=== PATIENT | male | born 1940 | race Caucasian/White ===

== ENCOUNTER 2017-07-20 10:46 | Observation (INO) | payer SELFPAY ==
[2017-07-20 11:30] LABS: ABS Basophils 0 10^3/ul (0-0.2); ABS Eosinophils 0.1 10^3/ul (0-0.6); ABS Lymphocytes 1.3 10^3/ul (1.0-4.8); ABS Monocytes 0.8 10^3/ul (0-0.8); ABS Neutrophils 4.8 10^3/ul (1.5-7.7); ABS Nucleated RBC 0 10^3/ul; Eosinophil % 1.4 % (0-6); Hematocrit 39 % (42-52); Hemoglobin 13.3 g/dl (14.0-18.0); Lymphocyte % 18.1 % (25-47); Mean Corpuscular HGB Conc 34 g/dl (31-36); Mean Corpuscular Hemoglobin 31 pg (27-31); Mean Corpuscular Volume 91 fL (80-94); Mean Platelet Volume 9.4 um3 (7.4-10.4); Nucleated Red Blood Cells % 0.1; Platelet Count 144 10^3/ul (150-450); Red Blood Count 4.33 10^6/ul (4.0-5.4); Red Cell Distribution Width 14 % (10.5-15)
[2017-07-20 11:36] LABS: INR 0.98 (0.77-1.02)
[2017-07-20 11:48] LABS: EGFR Non-African American 91.6 (>60)
--- NOTE | 2017-07-20 12:12 | RAD ---
HISTORY: Syncope and head trauma COMPARISONS: None TECHNIQUE: Multiple contiguous axial CT scans were obtained of the cervical spine without intravenous contrast, with coronal and sagittal multiplanar reformations. FINDINGS: BRAIN: The visualized brain is unremarkable CENTRAL CANAL: Evaluation of the central canal is limited on CT technique; however, there is no obvious canalicular mass or epidural hemorrhage. ALIGNMENT: The alignment is normal, without subluxation or dislocation. VERTEBRAL BODIES: There is diffuse osteopenia. There is multilevel anterolateral marginal osteophyte formation. There is no displaced fracture. JOINTS: There is uncovertebral and facet osteoarthritis. There is osteoarthritis of the atlantoaxial articulation. MUSCULATURE: Unremarkable INTERVERTEBRAL DISCS: There is diffuse loss of intervertebral disc height. AXIAL IMAGES: C2-C3: There is no osseous neural foraminal narrowing or central canal stenosis. C3-C4: There is moderate left neuroforaminal narrowing. There is no osseous central canal stenosis. C4-C5: There is mild bilateral neural foraminal narrowing. There is no osseous central canal stenosis. C5-C6: There is moderate bilateral neural foraminal narrowing. There is no osseous central canal stenosis. C6-C7: There is mild bilateral neural foraminal narrowing. There is no osseous central canal stenosis. C7-T1: There is no osseous neural foraminal narrowing or central canal stenosis. SOFT TISSUES: There is a 2.3 cm right thyroid nodule. The prevertebral fat stripe is preserved. Carotid calcifications are noted. OTHER: None. IMPRESSION: 1. NO ACUTE OSSEOUS INJURY TO THE CERVICAL SPINE. 2. DEGENERATIVE DISC DISEASE AND OSTEOARTHRITIS. 3. ATHEROSCLEROSIS. 4. 2.3 CM RIGHT THYROID NODULE. THE [place] [employer] INCIDENTAL THYROID FINDINGS COMMITTEE RECOMMENDS THYROID ULTRASOUND FOR INCIDENTAL NONSUSPICIOUS THYROID NODULES GREATER THAN 1.5 CM IN SIZE FOR THE PATIENT OVER THE AGE OF 35. SUMAYA Woods et al (2015) "Managing incidental thyroid nodules detected on imaging: white paper of the ACR Incidental Thyroid Findings Committee", Journal of the [employer], 12:143-150.
--- NOTE | 2017-07-20 12:13 | RAD ---
INDICATION: Head injury. COMPARISON: There are no prior studies available for comparison. TECHNIQUE: Contiguous axial sections of the brain were obtained from the skull base to the vertex without contrast. FINDINGS: The ventricles, cisterns and sulci are enlarged consistent with diffuse atrophy. There is a small focal area of increased density present in the in the midline adjacent to the frontal lobes anterior to the corpus callosum suspicious for a small area of subarachnoid hemorrhage. This measures approximate 5 mm in size. There are small areas of decreased attenuation present in the subcortical and periventricular white matter most consistent with mild chronic small vessel ischemic changes. No other focal abnormality or mass effect is seen. There is prominent focal soft tissue swelling in the scalp adjacent to the superior aspect of the left parietal bone. No fracture is seen. The visualized portion of the paranasal sinuses and mastoid air cells appear clear. IMPRESSION: 1. FINDINGS SUGGESTIVE OF A SMALL AREA OF SUBARACHNOID HEMORRHAGE ADJACENT TO THE FRONTAL LOBES DESCRIBED. 2. ATROPHY AND FINDINGS SUGGESTIVE OF CHRONIC SMALL VESSEL ISCHEMIC CHANGES.
--- NOTE | 2017-07-20 12:32 | RAD ---
INDICATION: Syncope. COMPARISON: There are no prior studies available for comparison. TECHNIQUE: AP and lateral views of the chest were obtained. FINDINGS: The patient appears to be status post coronary artery bypass surgery. The heart appears within normal limits in size. The lungs are hyperinflated and clear. No pleural effusion is seen. IMPRESSION: POSTSURGICAL CHANGES, NO EVIDENCE FOR ACUTE FINDING.
[2017-07-20] MEDS ORDERED: Tetan/Diph/Pertus SYR(Tdap)* 0.5 ML SYR(BOOSTRIX) use SYR IM ONE (13:21)
--- NOTE | 2017-07-20 13:23 | ED ---
Filiberto Lugo Angela, scribed for Rahat Cabello MD on 07/20/17 at 1052 . Head Injury - HPI Summary HPI Summary: This pt is a 77 y/o male presenting to [facility] via EMS c/o laceration on head s/p witnessed fall today. Pt reports he was walking down some stairs at [facility] with his when he slipped and fell. EMS notes he fell down 5 rough stairs and struck the back of his head on a stone. Pt states he does not remember falling and states "I didn't even know I had fallen." Per EMS bystanders held pressure on his head until EMS arrived. Pt denies neck pain, back pain, dizziness. Pt is currently on aspirin. Denies any other anticoagulants. Pt is a visitor from [place]. NKDA. - History Of Current Complaint Stated Complaint: FALL, HEAD LAC Hx Obtained From: Patient, EMS Mechanism Of Injury: Direct Blow, Fall From Height Of: - 5 stair steps Onset/Duration: Started Minutes Ago, Traumatic, Still Present Onset of Pain: Minutes Location of Head Injury: Occipital Aggravating Factor(s): Other: - nothing Alleviating Factor(s): Other: - nothing Associated Signs And Symptoms: LOC Duration Unknown, Other: - NEG: neck pain, back pain, dizziness Anticoagulant Therapy: ASA - Allergies/Home Medications Allergies/Adverse Reactions: Allergies Allergy/AdvReac Type Severity Reaction Status Date / Time No Known Allergies Allergy Verified 07/20/17 10:56 Home Medications: Home Medications Atorvastatin* [Lipitor*] 20 mg PO DAILY 07/20/17 [History Confirmed 07/20/17] Hydrochlorothiazide TAB* [Hydrodiuril TAB*] 12.5 mg PO DAILY 07/20/17 [History Confirmed 07/20/17] Metoprolol Succinate XL TAB* [Toprol XL TAB*] 50 mg PO BID 07/20/17 [History Confirmed 07/20/17] Phenytoin CAP(*) [Dilantin CAP(*)] 100 mg PO BID 07/20/17 [History Confirmed 06/03] amLODIPine TAB* [Norvasc 5 mg TAB*] 10 mg PO DAILY 07/20/17 [History Confirmed 07/20/17] PMH/Surg Hx/FS Hx/Imm Hx Endocrine/Hematology History: Denies: Hx Diabetes Cardiovascular History: Reports: Hx Coronary Artery Disease, Hx Hypertension Denies: Hx Myocardial Infarction - Surgical History Surgery Procedure, Year, and Place: Triple bypass in 2010. - Family History Known Family History: Negative: Respiratory Disease, Blood Disorder - Social History Alcohol Use: None Substance Use Type: Reports: None Smoking Status (MU): Never Smoked Tobacco Review of Systems Negative: Fever Positive: Other - neck pain, back pain Skin: Other - laceration on back of head Neurological: Other - NEG: dizziness All Other Systems Reviewed And Are Negative: Yes Physical Exam - Summary Physical Exam Summary: VITAL SIGNS: Reviewed. GENERAL: Patient is a well-developed and nourished male who is lying comfortable in the stretcher. Patient is not in any acute respiratory distress. HEAD AND FACE: Pt has an arterial bleed and after multiple attempts I was able to stop the bleeding. EYES: PERRLA, EOMI x 2, No injected conjunctiva, no nystagmus. EARS: Hearing grossly intact. Ear canals and tympanic membranes are within normal limits. MOUTH: Oropharynx within normal limits. NECK: Supple, trachea is midline, no adenopathy, no JVD, no carotid bruit, no c- spine tenderness, neck with full ROM. CHEST: Symmetric, no tenderness at palpation LUNGS: Clear to auscultation bilaterally. No wheezing or crackles. CVS: Regular rate and rhythm, S1 and S2 present, no murmurs or gallops appreciated. ABDOMEN: Soft, non-tender. No signs of distention. No rebound no guarding, and no masses palpated. Bowel sounds are normal. EXTREMITIES: FROM in all major joints, no edema, no cyanosis or clubbing. NEURO: Alert and oriented x 3. No acute neurological deficits. Speech is normal and follows commands. SKIN: Dry and warm GCS: 15 Triage Information Reviewed: Yes Vital Signs On Initial Exam: Initial Vitals Temp Pulse Resp BP Pulse Ox 0 F 73 20 168/92 95 07/20/17 10:49 07/20/17 10:49 07/20/17 10:49 07/20/17 10:49 07/20/17 10:49 Vital Signs Reviewed: Yes Procedures - Laceration/Wound Repair 1 Location: head Description: Linear Length, Depth and Shape: Length = 5 cm Laceration/Wound Explored: clean Number of Sutures: 5 - continued sutures along 5 cm Sterile Dressing Applied?: Yes Diagnostics - Vital Signs Vital Signs Temp Pulse Resp BP Pulse Ox 07/20/17 13:01 70 19 174/99 96 07/20/17 13:00 72 22 97 07/20/17 12:31 72 22 184/102 97 07/20/17 12:00 69 23 96 07/20/17 11:19 95 07/20/17 11:02 73 24 181/89 94 07/20/17 10:49 0 F 73 20 168/92 95 - Laboratory Lab Results: Lab Results 07/20/17 07/20/17 07/20/17 Range/Units 11:17 11:17 11:17 WBC 7.0 (3.5-10.8) 10^3/ul RBC 4.33 (4.0-5.4) 10^6/ul Hgb 13.3 L (14.0-18.0) g/dl Hct 39 L (42-52) % MCV 91 (80-94) fL MCH 31 (27-31) pg MCHC 34 (31-36) g/dl RDW 14 (10.5-15) % Plt Count 144 L (150-450) 10^3/ul MPV 9.4 (7.4-10.4) um3 Neut % (Auto) 68.9 (38-83) % Lymph % (Auto) 18.1 L (25-47) % [place] % (Auto) 11.1 H (0-7) % Eos % (Auto) 1.4 (0-6) % Baso % (Auto) 0.5 (0-2) % Absolute Neuts (auto) 4.8 (1.5-7.7) 10^3/ul Absolute Lymphs (auto) 1.3 (1.0-4.8) 10^3/ul Absolute Monos (auto) 0.8 (0-0.8) 10^3/ul Absolute Eos (auto) 0.1 (0-0.6) 10^3/ul Absolute Basos (auto) 0 (0-0.2) 10^3/ul Absolute Nucleated RBC 0 10^3/ul Nucleated RBC % 0.1 INR (Anticoag Therapy) (0.77-1.02) Sodium 138 L (139-145) mmol/L Potassium 3.4 L (3.5-5.0) mmol/L Chloride 101 (101-111) mmol/L Carbon Dioxide 30 (22-32) mmol/L Anion Gap 7 (2-11) mmol/L BUN 17 (6-24) mg/dL Creatinine 0.82 (0.67-1.17) mg/dL Est GFR ( Amer) 117.8 (>60) Est GFR (Non-Af Amer) 91.6 (>60) BUN/Creatinine Ratio 20.7 H (8-20) Glucose 165 H (70-100) mg/dL Lactic Acid 1.9 (0.5-2.0) mmol/L Calcium 8.9 (8.6-10.3) mg/dL Magnesium 1.8 L (1.9-2.7) mg/dL Total Bilirubin 0.30 (0.2-1.0) mg/dL AST 22 (13-39) U/L ALT 16 (7-52) U/L Alkaline Phosphatase 90 (34-104) U/L Total Creatine Kinase 70 (10-223) U/L Troponin I 0.00 (<0.04) ng/mL B-Natriuretic Peptide ( - 100) pg/mL Total Protein 6.3 L (6.4-8.9) g/dL Albumin 3.8 (3.2-5.2) g/dL Globulin 2.5 (2-4) g/dL Albumin/Globulin Ratio 1.5 (1-3) TSH 0.74 (0.34-5.60) mcIU/mL 07/20/17 07/20/17 Range/Units 11:17 11:17 WBC (3.5-10.8) 10^3/ul RBC (4.0-5.4) 10^6/ul Hgb (14.0-18.0) g/dl Hct (42-52) % MCV (80-94) fL MCH (27-31) pg MCHC (31-36) g/dl RDW (10.5-15) % Plt Count (150-450) 10^3/ul MPV (7.4-10.4) um3 Neut % (Auto) (38-83) % Lymph % (Auto) (25-47) % [place] % (Auto) (0-7) % Eos % (Auto) (0-6) % Baso % (Auto) (0-2) % Absolute Neuts (auto) (1.5-7.7) 10^3/ul Absolute Lymphs (auto) (1.0-4.8) 10^3/ul Absolute Monos (auto) (0-0.8) 10^3/ul Absolute Eos (auto) (0-0.6) 10^3/ul Absolute Basos (auto) (0-0.2) 10^3/ul Absolute Nucleated RBC 10^3/ul Nucleated RBC % INR (Anticoag Therapy) 0.98 (0.77-1.02) Sodium (139-145) mmol/L Potassium (3.5-5.0) mmol/L Chloride (101-111) mmol/L Carbon Dioxide (22-32) mmol/L Anion Gap (2-11) mmol/L BUN (6-24) mg/dL Creatinine (0.67-1.17) mg/dL Est GFR ( Amer) (>60) Est GFR (Non-Af Amer) (>60) BUN/Creatinine Ratio (8-20) Glucose (70-100) mg/dL Lactic Acid (0.5-2.0) mmol/L Calcium (8.6-10.3) mg/dL Magnesium (1.9-2.7) mg/dL Total Bilirubin (0.2-1.0) mg/dL AST (13-39) U/L ALT (7-52) U/L Alkaline Phosphatase (34-104) U/L Total Creatine Kinase (10-223) U/L Troponin I (<0.04) ng/mL B-Natriuretic Peptide 73 ( - 100) pg/mL Total Protein (6.4-8.9) g/dL Albumin (3.2-5.2) g/dL Globulin (2-4) g/dL Albumin/Globulin Ratio (1-3) TSH (0.34-5.60) mcIU/mL Result Diagrams: 07/20/17 11:17 07/20/17 11:17 Lab Statement: Any lab studies that have been ordered have been reviewed, and results considered in the medical decision making process. - Radiology chest XR Xray Interpretation: No Acute Changes - IMPRESSION: Postsurgical changes, no evidence for acute finding. Dr. Cabello has reviewed this radiology report. Radiology Interpretation Completed By: Radiologist - CT Brain CT CT Interpretation: Positive (See Comments) - IMPRESSION: 1. Findings suggestive of a small area of subarachnoid hemorrhage adjacent to the frontal lobes as described. 2. Atrophy and findings suggestive of chronic small vessel ischemic changes. Dr. Cabello has reviewed this radiology report. CT Interpretation Completed By: Radiologist Cervical spine CT CT Interpretation: No Acute Changes - IMPRESSION: 1. No acute osseous injury to the cervical spine. 2. Degenerative disc disease and osteoarthritis. 3. Atherosclerosis. 4. 2.3 CM right thyroid nodule the [employer] incidental thyroid findings committee recommends thyroid ultrasound for incidental nonsupicious thyroid nodules greater than 1.5 CM in size for the patient over the age of [address] Cabello has reviewed this radiology report. CT Interpretation Completed By: Radiologist - EKG 11:01 Cardiac Rate: NL - at 73 bpm EKG Rhythm: Sinus Rhythm EKG Interpretation: No ST elevations. Re-Evaluation - Re-Evaluation First Eval Re-Evaluation Time: 12:31 Comment: Performing a laceration repair at this time. Pt continues to be alert and oriented. Head Injury Course/Dx Assessment/Plan: This patient is a 77-year-old male who presents to the emergency department via ambulance after the patient suffered a fall hitting his head, sustaining a laceration, and had a syncopal episode. I believe that the patient had a syncopal episode because he doesnt remember what happened. On arrival to the emergency department the patient has an arterial bleed and the scalp which he took a couple sutures before I was able to stop the bleeding. Head CT impression: IMPRESSION: 1. FINDINGS SUGGESTIVE OF A SMALL AREA OF SUBARACHNOID HEMORRHAGE ADJACENT TO THE FRONTAL LOBES DESCRIBED. 2. ATROPHY AND FINDINGS SUGGESTIVE OF CHRONIC SMALL VESSEL ISCHEMIC CHANGES. C- spine CT IMPRESSION: 1. NO ACUTE OSSEOUS INJURY TO THE CERVICAL SPINE. 2. DEGENERATIVE DISC DISEASE AND OSTEOARTHRITIS. 3. ATHEROSCLEROSIS. 4. 2.3 CM RIGHT THYROID NODULE. THE [place] [employer] INCIDENTAL THYROID FINDINGS COMMITTEE RECOMMENDS THYROID ULTRASOUND FOR INCIDENTAL NONSUSPICIOUS THYROID NODULES GREATER THAN 1.5 CM IN SIZE FOR THE PATIENT OVER THE AGE OF 35. Chest x-ray impression: POSTSURGICAL CHANGES, NO EVIDENCE FOR ACUTE FINDING. Laceration repaired. See note. Patient was given the tetanus vaccine. Blood work without any significant abnormality Except for hypokalemia for which he was given potassium chloride hypomagnesemia for which the patient was given magnesium by mouth. Because of the mechanism of injury and the syncopal episode I believe that the patient is to be admitted for observation. I discuss my physical exam, findings and test results with Dr. Park from the hospitalist services and he agrees to admit patient to his services. Patient is hemodynamically stable alert and oriented x 3. - Diagnoses Differential Diagnosis/HQI/PQRI: Cerebral Contusion, Cervical Sprain, Concussion With LOC, Contusion, Intracranial Bleed Provider Diagnoses: Subarachnoid hemorrhage, Syncope, Scalp laceration - Physician Notifications Discussed Care Of Patient With: Nate Merida Time Discussed With Above Provider: 13:00 Instructed by Provider To: Other - I discussed pt care with Dr. Merida, neurologist, who reports there is nothing else to do and agrees to admission to the hospitalist. [13:05] I discussed with Dr. Park, hospitalist, who has accepted the pt for admission. - Critical Care Time Critical Care Time: 30-74 min Discharge - Sign-Out/Discharge Documenting (check all that apply): Discharge/Admit/Transfer - Admit - Discharge Plan Condition: Stable Disposition: ADMITTED TO [facility] Referrals: No Primary Care Phys,NOPCP [Primary Care Provider] - - Billing Disposition and Condition Condition: STABLE Disposition: Admitted to [facility] The documentation as recorded by the Filiberto meyer Angela accurately reflects the service I personally performed and the decisions made by me, Rahat Cabello MD.
[2017-07-20] MEDS ORDERED: Ondansetron 40 MG VIAL* 2 MG/ML 20 ML VIAL IV PRN (13:37)
[2017-07-20] MEDS ORDERED: Acetaminophen TAB* 325 MG PO PRN (13:37)
[2017-07-20] MEDS ORDERED: Magnesium Hydroxide LIQ* 30 ML UDC PO PRN (13:37)
[2017-07-20] MEDS ORDERED: Al Hydrox/Mg Hydrox/Simet LIQ* 30 ML UDC PO PRN (13:37)
[2017-07-20] MEDS ORDERED: oxyCODONE/Acetamin 5/325 MG* TAB PO PRN (13:37)
[2017-07-20] MEDS ORDERED: NS 0.9% 1000 ML* 1,000 ML IV ONE (13:40)
[2017-07-20] MEDS ORDERED: Bacitracin OINTMENT* 0.5% 0.5 oz TUBE TOPICAL ONE (13:45)
[2017-07-20 14:44] LABS: Urine Appearance Clear; Urine Blood 2+ (Negative); Urine Color Yellow; Urine Ketones Negative (Negative); Urine Protein 1+(30 mg/dL) (Negative); Urine Specific Gravity 1.017 (1.010-1.030); Urine Urobilinogen Negative (Negative)
--- NOTE | 2017-07-20 15:24 | HP ---
AMENDED REPORT NOW INCLUDES COSIGNER DESIGNATION - ESIGNED BEFORE ADJUSTMENTS CC: Dr. Schmidt... ADMISSION HISTORY AND PHYSICAL: DATE OF ADMISSION: 07/20/17 ATTENDING HOSPITALIST: Dr. Park.* (DICTATED BY SRINIVASAN BARON) PRIMARY CARE PHYSICIAN: Dr. Schmidt. CHIEF COMPLAINT: Fall and head trauma. HISTORY OF PRESENT ILLNESS: Mr. Prasad is a pleasant 77-year-old gentleman who carries past medical history significant for hypertension, coronary artery disease for which he had coronary artery bypass graft back in 2009, as well as history of seizure that has been in remission for decades. He presented to the emergency room earlier today after he sustained a fall and hit his head on hard concrete while climbing at a local scenery fall. According to his who witnessed the fall, the patient tripped on the concrete steps and fell striking his head on the steps and noticed some bleeding to the left side of his head; however, denies any loss of consciousness, weakness, dizziness, syncope, or chest pain prior to or after his fall. He was able to get up and ambulate. He noticed bleeding to the left side of his head, but denied any visual changes, epistaxis, or bleeding from his ears. He has been taking 2 baby aspirin on a daily basis for years; however, denies taking any blood thinners or antiplatelet agents beside his aspirin. He presented to the emergency room and had a CT of the head and cervical spine that was consistent with a small area of subarachnoid hemorrhage adjacent to the frontal lobe. The patient again denied any weakness, dizziness, numbness, or any other neurological symptoms at this time. Given his advanced age and the findings on the CT scan, we were asked to see the patient for further evaluation and to discuss admission for observation overnight at the telemetry unit to perform neurologic checks as well as obtain a repeat CT scan of the head after 24 hours to document no worsening of his intracranial bleed. The patient himself at this time denies any other associated symptoms. He had his laceration repaired in the emergency room on the left side of his temporal area using nylon sutures and appears to be hemodynamically stable and shows no signs of active bleeding. He has never had any falls or syncopal episodes in the past. PAST MEDICAL HISTORY: As mentioned above, significant for: 1. Hypertension. 2. Coronary artery disease. 3. History of seizure in the remote past for which the patient has been maintained on Dilantin for the past 30 years or so and he denies any seizure activities in the past decades. 4. He also has history of hyperlipidemia. PAST SURGICAL HISTORY: Significant for: 1. Coronary artery bypass graft back in 2009. 2. Cholecystectomy back in 1973. CURRENT MEDICATIONS: His medications at home include: 1. Norvasc 10 mg p.o. daily. 2. Aspirin 81 mg 2 tablets p.o. daily. 3. Lipitor 20 mg p.o. daily. 4. Hydrochlorothiazide 12.5 mg p.o. daily. 5. Metoprolol 50 mg p.o. b.i.d. 6. Dilantin 100 mg p.o. b.i.d. ALLERGIES: He has no known drug allergies. FAMILY HISTORY: He denies any family history of hypertension, diabetes, or malignancies. SOCIAL HISTORY: The patient still works as a bookbinder. He is a nonsmoker who denies alcohol intake and caffeine intake is minimal. He lives with his and has 2 daughters. His , Travis, is the carrier of his healthcare proxy. REVIEW OF SYSTEMS: I have performed a 14-point review of systems and every positive finding was included in the above-mentioned history of present illness , otherwise they are all negative. PHYSICAL EXAMINATION GENERAL: He is a pleasant, healthy appearing older male, in no acute distress or discomfort at the time of admission. VITAL SIGNS: Revealed blood pressure of 174/99. There was no record of temperature taken in the emergency room, but we will check later after admission. Pulse was 71, respirations of 19, and O2 sat of 96% on room air. HEENT: Head is normocephalic. There is an area of repaired laceration to the left parietal area of his skull measuring approximately 5 to 6 cm and closed with what appears to be a 4-0 nylon suture in an interrupted fashion. There was no surrounding erythema, ecchymosis, or swelling noted. EOMs were intact. Sclerae were anicteric. Ear exam with clear auditory canals bilaterally. Nasal septum was midline with no evidence of epistaxis. Oropharynx is pink and moist with no exudate. NECK: Supple. Trachea midline. No cervical adenopathy, thyromegaly, or JVD. LUNGS: Clear to auscultation bilaterally. HEART: Regular rate and rhythm. Normal S1 and S2 without rubs, murmurs, or gallops. BACK: With normal curvature. No CVA tenderness. ABDOMEN: Soft, nontender, and nondistended. There are no hernias, masses, or hepatosplenomegaly. On the midline of the upper chest wall, there is a long incision with excessive colloid noted from prior cardiac bypass surgery. No evidence of any bleeding or infection. EXTREMITIES: Without cyanosis, clubbing, or edema. NEUROLOGIC: Grossly intact. Hand maxillofacial pathology was equal bilaterally. There is no evidence of weakness or paresthesia. RECTAL: Exam deferred at this time. LABORATORY WORKUP: CBC with white count of 7000, hemoglobin 13.3, hematocrit of 39, and platelets of 144,000. His INR is 0.98. Chemistry panel revealed very mild hypokalemia with potassium of 3.4, sodium 138, chloride 101, carbon dioxide 30, BUN 17, and creatinine of 0.8. His glucose was 165 and magnesium slightly low at 1.8. ACCESSORY DIAGNOSTIC DATA: As mentioned above, CT scan of the brain and cervical spine with findings suggestive of a small area of subarachnoid hemorrhage adjacent to the frontal lobes and there was some atrophy and findings suggestive of chronic small vessel ischemic changes, which are probably relevant to his advanced age. IMPRESSION: A 77-year-old gentleman with past medical history significant for hypertension, coronary artery disease and a very remote history of seizure disorder, who presented to the emergency room after he sustained a fall while climbing stairs with head trauma, laceration, as well as CT scan findings consistent with a small subarachnoid hemorrhage. ASSESSMENT AND PLAN: 1. Head trauma with subarachnoid hemorrhage. The patient will be admitted to the telemetry unit for close observation and neurologic checks every 2 hours. He appears to be very stable at this time and showed no evidence of any neurologic deficit since the incident. He had not lost any consciousness and he experienced no nausea, vomiting, weakness, dizziness, or any other associated symptoms. We will hold off his aspirin and he will be covered only mechanically with DVT prophylaxis due to increased risk of bleeding. We will also obtain neurologic checks every 2 hours and we will repeat his CT scan of the head in 24 hours to document no increase in the size of his subarachnoid hemorrhage. 2. Hypertension. The patient appears to be hypertensive upon admission. I will make sure that he took his medication this morning and it is likely related to stress from his fall as well as possibility of concussion given the mechanism of his injury. 3. Coronary artery disease. The patient is stable and will continue his Lipitor and hold his aspirin for now due to increased risk of bleeding. 4. Seizure disorder. Appears to be very remote and has not had any seizure activity in more than 2 decades. We will maintain him on seizure precaution given his probable head trauma with concussion and also we will continue his Dilantin 100 mg b.i.d. 5. DVT prophylaxis: We will use only mechanical SCDs. No heparin due to increased risk of bleeding. 6. Code status: The patient is a full code. I have discussed the case with my attending, Dr. Park, who agreed to all the above- mentioned plans and treatments. TIME SPENT: I have spent approximately 60 minutes admitting this patient with greater than 50% spent on [id number] conversation, examination, and discussion of plan of treatments. SRINIVASAN BARON [id number]/CPS #: [id number] CORNELIO
[2017-07-20] MEDS ORDERED: amLODIPine TAB* 5 MG PO ONE (15:49)
[2017-07-20] MEDS ORDERED: Metoprolol Succinate XL TAB* 50 MG PO ONE (15:52)
[2017-07-20] MEDS ORDERED: Atorvastatin* 20 MG TAB PO SCH (21:20)
[2017-07-20] MEDS: Phenytoin CAP(*) 100 MG CAP.ER PO SCH (21:24)
[2017-07-21 05:50] LABS: ABS Basophils 0 10^3/ul (0-0.2); ABS Eosinophils 0.1 10^3/ul (0-0.6); ABS Lymphocytes 1.6 10^3/ul (1.0-4.8); ABS Monocytes 1.1 10^3/ul (0-0.8); ABS Neutrophils 5.1 10^3/ul (1.5-7.7); ABS Nucleated RBC 0 10^3/ul; Hematocrit 32 % (42-52); Hemoglobin 11.1 g/dl (14.0-18.0); Mean Corpuscular HGB Conc 35 g/dl (31-36); Mean Corpuscular Hemoglobin 31 pg (27-31); Mean Corpuscular Volume 89 fL (80-94); Mean Platelet Volume 9.4 um3 (7.4-10.4); Nucleated Red Blood Cells % 0; Platelet Count 128 10^3/ul (150-450); Red Blood Count 3.58 10^6/ul (4.0-5.4); Red Cell Distribution Width 13 % (10.5-15); White Blood Count 7.9 10^3/ul (3.5-10.8)
[2017-07-21 06:03] LABS: EGFR Non-African American 136.6 (>60)
[2017-07-21] MEDS: Phenytoin CAP(*) 100 MG CAP.ER PO SCH (08:40)
[2017-07-21] MEDS ORDERED: Metoprolol Succinate XL TAB* 50 MG PO SCH (09:00)
[2017-07-21] MEDS ORDERED: amLODIPine TAB* 5 MG PO SCH (09:00)
[2017-07-21] MEDS ORDERED: Hydrochlorothiazide TAB* 25 MG PO SCH (09:00)
--- NOTE | 2017-07-21 13:58 | RAD ---
INDICATION: Follow-up subarachnoid hemorrhage in a patient with prior head trauma. COMPARISON: CT of the brain July 20, 2017 TECHNIQUE: Contiguous axial sections of the brain were obtained from the skull base to the vertex without contrast. FINDINGS: The ventricles, cisterns and sulci are within normal limits. Again seen is a 6 mm focus of hyperattenuation along the midline surface of the left frontal lobe just anterior to the corpus callosum. This is unchanged from the previous day's CT examination. There are no new foci of hyperattenuation to indicate worsening or new acute intracranial hemorrhage. Periventricular and subcortical white matter hypoattenuation, similar in appearance the previous day's CT of the brain is most consistent with mild microvascular disease. Otherwise the jenkins-white matter differentiation is adequately maintained and there is no sulcal effacement. No significant focal abnormality or mass effect is present. Again seen overlying the left parietal calvarium is subcutaneous thickening and induration consistent with subgaleal hematoma. Subcutaneous gas indicates laceration. The underlying calvarium is intact. The visualized portion of the paranasal sinuses appear clear. The mastoid air cells are well aerated bilaterally. IMPRESSION: 1. Stable focus of 6 mm hyperattenuation along the medial surface of the left frontal lobe is unchanged in the previous days CT and could represent a stable focus of subarachnoid hemorrhage or other chronic hyperattenuating focus on related to the trauma. There are no foci of new or worsening intracranial hemorrhage. 2. Stable subgaleal hematoma overlying the left parietal bone.
[2017-07-21 14:14] VITALS: BP 170/81
[2017-07-21] MEDS ORDERED: Magnesium Chloride EC TAB* 64 MG PO ONE (16:31)
--- NOTE | 2017-07-22 10:07 | DS ---
AMENDED REPORT NOW INCLUDES COSIGNER DESIGNATION - ESIGNED BEFORE ADJUSTMENTS CC: Dr. Schmidt in [place], [place]* DISCHARGE SUMMARY: DATE OF ADMISSION: 07/20/17. DATE OF DISCHARGE: 07/21/17. PRIMARY CARE PHYSICIAN: Dr. Schmidt in [place], [place]. ATTENDING: Dr. Laura Park MY ATTENDING FOR TODAY: Dr. Harrington.* (DICTATED BY AMARA BISHOP NP) HOSPITAL COURSE: This is a very pleasant 77-year-old male patient who presented to the emergency department status post fall. The patient stated that earlier in the day, he had been going to see some friends and they were doing some climbing at [place] the [place] the patient lost his balance and hit his head on the concrete. According to the and people who were there, they witnessed the fall that the patient tripped over the concrete steps striking his head, and they noticed some bleeding on the left side of his head into the back of his ear. The patient denied any loss of consciousness. Denied any prodromal symptoms. No dizziness or diaphoresis or chest pain. No shortness of breath and no neurological complaints prior to the fall. The patient was brought to the emergency department for evaluation and was found after a CAT scan of the head that he had a small area of the subarachnoid hemorrhage adjacent to the frontal lobe approximately 6 mm in size. The patient also had a CT scan of the neck, which showed no acute findings. The patient had absolutely no neurologic symptoms or issues at the time of admission; however, given his advanced age and his previous medical history of coronary artery disease with CABG in 2009, hypertension, and remote history of seizure disorder, it was felt that the patient should be observed overnight for worsening bleeding or increase in size of his subarachnoid hemorrhage. The patient remained hemodynamically stable. He did receive sutures in the ED to the scalp, which had been approximated and hemostasis achieved. The patient at that time again was not complaining of any headaches or any other symptoms and agreed to stay for observation. The patient had repeat CAT scan this morning, which showed no interval change and no additional expansion of the area of bleeding remaining at 6 mm and again the patient with no neurologic symptoms, we feel that it is safe to discharge the patient to home with followup. Also significant note, his telemetry showed no acute changes and his neurologic checks remained within normal limits. Again, past medical history is significant for CAD, hypertension, remote history of seizure disorder, and hyperlipidemia. For the patient's seizures, he had been taking Dilantin for many years, but has not had a breakthrough seizure in over 20 years, and did not show any seizure activity prior to the fall or after. Today, the patient denies again any headache. No visual disturbances. No dizziness, no paresthesias, no gait disturbance, no nausea, no vomiting, and no constitutional complaints. PHYSICAL EXAMINATION: General: The patient is alert, in no acute distress. Vital Signs: Blood pressure 170/81, heart rate 75, respiratory rate 16, O2 saturation 99% on room air, temperature of 98.5. HEENT: The patient is normocephalic. Has a traumatic injury to the scalp localized to the left parietal area where the suture line is approximated and intact. There is no obvious bleeding right now. There is no exudate. There is some mild erythema to the area and some edema; however, does not appear to be acutely infected and the suture line is approximately 5 cm long and intact. The patient has PERRLA, nonicteric sclerae. Extraocular movements are intact. Oral mucosa is moist. Tongue is midline. Neck: Supple and nontender. No JVD noted. No carotid bruits auscultated. Cardiovascular: S1, S2 present. No murmurs, gallops, or rubs. There is a well-healed surgical scar secondary to sternotomy in the chest. No murmurs, gallops, or rubs noted. Lungs: Clear bilaterally to auscultation with no wheezing, rhonchi, or rales. Abdomen: Soft, nontender, nondistended. Positive bowel sounds in all 4 quadrants. : Deferred. Musculoskeletal: There is no clubbing, no cyanosis, no edema. +2 distal pulses palpable. He has a steady gait. No edema noted. Neurologic: He is grossly intact. Cranial nerves grossly intact with no neurologic focalities noted. Psychiatric: He is cooperative and appropriate. LABORATORY DATA: WBCs 7.9, RBCs 3.58, hemoglobin 11.1, hematocrit 32, platelets 128. Sodium 138, potassium 3.4, chloride 100, CO2 28, BUN 13, creatinine 0.58, GFR is 136, glucose 122, calcium 8.2, AST 22, ALT 16, alk phos 90; total protein 6.3. IMAGING: The patient's repeat CAT scan dated this morning, 07/21/17, shows a stable focus of 6 mm hyperattenuation along the medial surface of the left frontal lobe, which is unchanged from the previous CT of 07/20/17 and could represent a stable focus of subarachnoid hemorrhage or other chronic hypoattenuating focus related to the trauma. There are no new foci and no worsening of the intracranial hemorrhage. Also has a stable subgaleal hematoma overlying the left parietal bone. DISCHARGE DIAGNOSES: 1. Mechanical fall. 2. Subarachnoid hemorrhage. 3. History of coronary artery disease and coronary artery bypass graft. 4. History of hypertension. 5. History of hyperlipidemia. 6. History of seizure disorder. MEDICATIONS FOR DISCHARGE: Include: 1. Metoprolol succinate XL 50 mg p.o. two times a day. 2. Amlodipine 10 mg daily. 3. Atorvastatin 20 mg daily. 4. Dilantin 100 mg two times a day. 5. Hydrochlorothiazide 12.5 mg daily. 6. Also of note, the patient had a slightly low magnesium. He has received one dose of Slow-Mag orally. DISPOSITION PLAN: The patient will be discharged to home in the care of his . The patient is from [place], [place], who is here visiting and is staying with friends. The patient states he will follow up with his primary care physician by Thursday and he was instructed to return to the emergency department whether he is here in [place] or back home in [place] if he has any neurologic symptoms. We discussed at length that increasing headache, dizziness , any visual disturbances, loss of balance, gait coordination, nausea, or vomiting, the patient should return to the emergency department immediately. DISCHARGE INSTRUCTIONS: The patient was told to follow up again with his primary care provider to ensure some of his electrolyte disturbances are resolving. The patient was discharged in stable condition. All questions were answered to the patient's , who is his gang miner, will also call his primary care provider. They do not have his phone number handy. She will call tomorrow to have the patient see Dr. Schmidt by Thursday and also to have suture removal in 7 to 10 days. AMARA BISHOP, WINE FERMENTER [id number]/[facility] #: [id number] [place]
== END 2017-07-21 17:06 | disposition home or self-care (01) ==
LOC: ED 10:46 → MEDTELE 13:37
PROVIDERS: ADMIT Internal Medicine; ATTEND Internal Medicine
DX: S01.01XA Laceration without foreign body of scalp, initial encounter (principal); I60.9 Nontraumatic subarachnoid hemorrhage, unspecified; R55 Syncope and collapse; M50.31 Other cervical disc degeneration, high cervical region; I70.90 Unspecified atherosclerosis; M54.9 Dorsalgia, unspecified; W10.9XXA Fall (on) (from) unspecified stairs and steps, initial encounter; Y92.9 Unspecified place or not applicable
CPT/HCPCS: 12002; 36415; 70450; 71046; 72125; 80048; 80053; 81003; 81015; 82550; 83605; 83735; 83880; 84443; 84484; 85025; 85610; 90471; 90715; 93005; 99284; A9270-GY